=== PATIENT | male | born 1965 | race Caucasian/White ===

== ENCOUNTER → 2021-03-03 15:40 | Outpatient (BNVA) | payer MEDICARE, SELFPAY | PROVIDERS: PCP Family Medicine; Referring Provider Family Medicine; Visit Provider Specialist | DX: G31.84 Mild cognitive impairment of uncertain or unknown etiology (principal); G24.01 Drug induced subacute dyskinesia; F31.9 Bipolar disorder, unspecified; F17.210 Nicotine dependence, cigarettes, uncomplicated | CPT/HCPCS: 96116; 99205 ==

== ENCOUNTER 2021-03-23 09:47 | Outpatient (CLI) | payer MEDICARE, SELFPAY ==
--- NOTE | 2021-03-23 09:30 | MR_ITS ---
WS: [id number] MRI HEAD WITHOUT CONTRAST TECHNIQUE: Sagittal T1, T2 axial, T2 axial FLAIR, axial and coronal T1 images, axial susceptibility w eighted imaging, axial diffusion weighted images, and coronal T2 images were obtained. CLINICAL INFORMATION: R41.3 - Other amnesia COMPARISON: None. FINDINGS: Fast acquisition imaging performed due to tremors. No evidence of restricted diffusion to suggest acute ischemia. Ventricular system and basal cisterns are patent. Moderate supratentorial white matter changes likely due to small vessel disease. Small ve ssel changes in the medardo. No significant parenchymal volume loss. Normal posterior fossa. Normal vascular flow voids at the skull base. No extra axial fluid collection s. Partial opacification right mastoid air cells. Mild mucosal thickening in the paranasal sinuses. Partially visualized T2 hyperintense lobulated intraparotid lesion measuring 2.0 x 1.4 CM. Normal opt ic chiasm and pituitary infundibulum. Temporal lobes and hippocampal formations are normal in appeara nce. No signal abnormalities in the mesial temporal lobes. No hemosiderin on susceptibly weighted jay ging. MR/MR head wo con* [id number] IMPRESSION: 1. No evidence of restricted diffusion to suggest acute ischemia. 2. Moderate supratentorial white matter changes likely due to small vessel dis ease. Small vessel changes in the medardo. No significant parenchymal volume loss. 3. Temporal lobes and hippocampal formations are normal in appearance. 4. No hemosiderin on susceptibly weighted images. 5. Partial opacification right mastoid air cells. 6. 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 This can be followed up with contrast-enhanced neck CT. 7. No other significant findings.
== END 2021-03-23 09:48 | disposition home or self-care (01) ==
PROVIDERS: PCP Family Medicine; Visit Provider Specialist
DX: R41.3 Other amnesia (principal)
CPT/HCPCS: 70551

== ENCOUNTER → 2021-04-06 13:01 | Outpatient (BNVA) | payer MEDICARE, SELFPAY | PROVIDERS: PCP Family Medicine; Visit Provider Specialist | DX: R41.3 Other amnesia (principal); G25.0 Essential tremor; F17.200 Nicotine dependence, unspecified, uncomplicated | CPT/HCPCS: 95816 ==

== ENCOUNTER 2021-04-23 11:29 | Outpatient (CLI) | payer MEDICARE, SELFPAY ==
--- NOTE | 2021-04-23 11:38 | CT_ITS ---
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 Compared to the MRI of the brain performed 03/23/2021. The neck is evaluated in the axial plane with sagittal and coronal reformatted images. Intravenous co ntrast was administered. The previously noted nodule in the right parotid gland is difficult to define on the CT scan. There i s an area of the poorly defined decreased attenuation in the right parotid gland that measures about 2 x 1.7 cm that may represent the lesion. No significant contrast enhancement of this region is seen. There are several small intraparotid lymph nodes in the right parotid gland. There is a ring-enhanci ng low-attenuation nodule in the left parotid gland that measures about 6.8 mm at greatest diameter. No significant lymphadenopathy in the neck. The submandibular glands are symmetrical side to side. Th e airway is patent. The vascular structures are unremarkable in appearance. Goitrous enlargement of t he thyroid gland. No mass is seen in the region of the tongue base. The lung apices are clear. Modera te degenerative changes in the cervical spine. Recommendations: 1. Ring-enhancing lesion lobe right parotid gland could represent a cystic neoplasm and biopsy would be indicated. 2. Low-attenuation density in the left parotid gland with corresponding lesion noted on MRI is an ind eterminate lesion and biopsy of this lesion should also be considered for definitive diagnosis. CT/CT neck w con* [id number] IMPRESSION: 1. Previously noted lesion in the right parotid gland on recent MRI of the brai n is difficult to define on the CT. There is a corresponding area of decreased attenuation measuring about 2 x 1.7 cm in the right parotid gland that may repr esent the lesion. Hardly any contrast enhancement is seen. 2. Ring-enhancing low-attenuation nodule in the left parotid gland measuring 6. 8 mm at greatest diameter. 3. Several small intraparotid lymph nodes seen.
[2021-04-23] MEDS: iohexol 300 mg/mL 100 mL Btl IV (12:03)
== END 2021-04-23 11:30 | disposition home or self-care (01) ==
PROVIDERS: PCP Family Medicine; Visit Provider Specialist
DX: D11.0 Benign neoplasm of parotid gland (principal); R59.0 Localized enlarged lymph nodes
CPT/HCPCS: 70491; Q9967

== ENCOUNTER → 2021-05-24 14:16 | Outpatient (BNVA) | payer MEDICARE, SELFPAY | PROVIDERS: PCP Family Medicine; Visit Provider Specialist | DX: R25.1 Tremor, unspecified (principal); F03.90 Unspecified dementia, unspecified severity, without behavioral disturbance, psychotic disturbance, mood disturbance, and anxiety; D49.0 Neoplasm of unspecified behavior of digestive system | CPT/HCPCS: 99214 ==